=== PATIENT | female | born 1985 | race Two or more races ===

== ENCOUNTER 2016-10-09 04:23 | Emergency (ER) | payer BC ==
--- NOTE | 2016-10-09 05:11 | ER Document Report ---
ED General - General TRAVEL OUTSIDE OF THE [place] IN LAST 30 DAYS: No - HPI Onset: Other - Refer to HPI notes Associated symptoms: Body/muscle aches, Nonproductive cough, Fever, Headache, Rhinnorhea, Sore throat. denies: Nausea, Vomiting Similar symptoms previously: No Recently seen / treated by doctor: No - General Chief Complaint: Painful Cough Stated Complaint: FLU LIKE SYMPTOMS Time Seen by Provider: 10/09/16 04:58 Notes: Patient is a 30 year old female presenting to the emergency department for fever , sweats, body aches, headache, sore throat, and loss of voice x2 days. Patient also has a cough that causes pain to her throat. Patient has taken Tylenol and Robitussin at 20:45 tonight without much relief. Patient's headache is across both sides of her forehead. Patient also has some congestion. Patient denies any difficulty breathing, chest pain, vomiting, or diarrhea. Patient is originally from [place] but denies any recent travel out of the country. (JAIME CARBAJAL) Past Medical History - General Information source: Patient - Social History Smoking Status: Never Smoker Cigarette use (# per day): No Chew tobacco use (# tins/day): No Frequency of alcohol use: None Drug Abuse: None Family History: None Patient has suicidal ideation: No Patient has homicidal ideation: No - Medical History Medical History: Negative Surgical Hx: Negative - Immunizations Immunizations up to date: Yes History of Influenza Vaccine for 02/2016 - 07/2016 Season: No Review of Systems - Review of Systems Constitutional: See HPI, Chills, Fever EENT: No symptoms reported, Nose congestion Cardiovascular: No symptoms reported Respiratory: See HPI, Cough Gastrointestinal: No symptoms reported Genitourinary: No symptoms reported Female Genitourinary: No symptoms reported Musculoskeletal: See HPI Skin: No symptoms reported Hematologic/Lymphatic: No symptoms reported Neurological/Psychological: See HPI, Headaches -: Yes All other systems reviewed and negative Physical Exam - Vital signs Vitals: Temp Pulse Resp BP Pulse Ox 99.2 F 109 H 16 129/84 H 97 10/09/16 04:26 10/09/16 04:26 10/09/16 04:26 10/09/16 04:26 10/09/16 04:26 - Notes Notes: GENERAL: Alert, interacts well. No acute distress. HEAD: Normocephalic, atraumatic. EYES: Pupils equal, round, and reactive to light. Extraocular movements intact. ENT: Oral mucosa moist, tongue midline. Nares patent, no nasal septal hematoma, clear rhinorrhea. Mild injection. TMs intact. Cobblestoning. No tonsil edema. NECK: Full range of motion. Supple. Trachea midline. LUNGS: Clear to auscultation bilaterally, no wheezes, rales, or rhonchi. No respiratory distress. HEART: Mild tachycardic. Regular rhythm. No murmurs, gallops, or rubs. ABDOMEN: Soft, non-tender. Non-distended. Bowel sounds present in all 4 quadrants. EXTREMITIES: Moves all 4 extremities spontaneously. No edema. No cyanosis. NEUROLOGICAL: Alert and oriented x3. Speech is hoarse. PSYCH: Normal affect, normal mood. SKIN: Warm, dry, normal turgor. No rashes or lesions noted. (JAIME CARBAJAL) Course - Re-evaluation Re-evalutation: 10/09/16 05:28 No evidence of bacterial sinusitis, no evidence of strep throat. Patient will be treated symptomatically. Discharged to home. (KENZIE CASTILLO) - Vital Signs Vital signs: Temp Pulse Resp BP Pulse Ox 98.5 F 92 16 112/73 95 10/09/16 05:50 10/09/16 05:50 10/09/16 05:50 10/09/16 05:50 10/09/16 05:50 Discharge - Discharge Clinical Impression: Viral URI with cough Condition: Stable Disposition: HOME, SELF-CARE Instructions: Upper Respiratory Illness ([facility]) Additional Instructions: Please use nasal saline rinses such as a NetiPot or NeilMed Sinus Rinses. Please use ibuprofen (Motrin or Advil) 600-800 mg every 8 hours as needed for pain or fever. You may also use acetaminophen (Tylenol) 1000 mg every 4-6 hours as needed for pain or fever. Please be aware that many medications contain acetaminophen, do not exceed a total of 1000 mg of acetaminophen every 6 hours. Scribe Attestation: 10/09/16 05:57 I personally performed the services described in the documentation, reviewed and edited the documentation which was dictated to the scribe in my presence, and it accurately records my words and actions. (KENZIE CASTILLO) Scribe Documentation - Scribe Written by Barry:: Jaime Carbajal, Barry, 10/09/2016 5:45 acting as scribe for :: Vikram
[2016-10-09 05:52] VITALS: BP 112/73
== END 2016-10-09 06:15 | disposition home or self-care (01) ==
LOC: ER 04:23
DX: J06.9 Acute upper respiratory infection, unspecified (principal); B34.9 Viral infection, unspecified; R05 Cough; R50.9 Fever, unspecified; R52 Pain, unspecified; R51 Headache; J02.9 Acute pharyngitis, unspecified
CPT/HCPCS: 99283